=== PATIENT | male | born 1940 | race African-American/Black ===

== ENCOUNTER 2017-09-20 13:17 | Inpatient (IN) | payer MEDICARE ==
[2017-09-20 13:54] LABS: AGAP ISTAT 13 mmol/L (6-14); BUN ISTAT 28 mg/dL (8-26); CHLORIDE ISTAT 104 mmol/L (98-110); CREATININE ISTAT 1.7 mg/dL (0.5-1.4); GLUCOSE ISTAT 164 mg/dL (70-99); HEMATOCRIT ISTAT 39 % (37-52); HEMOGLOBIN ISTAT 13.3 g/dL (14-18); ION CA ISTAT 1.14 mmol/L (1.13-1.32); POTASSIUM ISTAT 5.9 mmol/L (3.5-5.0); SODIUM ISTAT 137 mmol/L (135-145); TOT CO2 ISTAT 27 mmol/L (23-32)
[2017-09-20 14:05] LABS: BILIRUBIN,URINE NEGATIVE (NEG); CLARITY,URINE CLEAR; COLOR,URINE YELLOW; GLUCOSE,URINE NEGATIVE (NEG); NITRITE,URINE NEGATIVE (NEG); PH,URINE 5.5; PROTEIN,URINE 30 mg/dL (NEG-TRACE)
[2017-09-20 14:15] LABS: BACTERIA,URINE 0 /HPF (0-FEW); HYALINE CASTS, URINE MODERATE /HPF; RBC,URINE 0 /HPF (0-2); WBC,URINE OCC /HPF (0-4)
[2017-09-20] MEDS ORDERED: ONDANSETRON PF 4 MG/2 ML VIAL. IV (16:15)
[2017-09-20] MEDS: fentaNYL PF VIAL 100 MCG/2 ML VIAL IV ×2 (16:18→17:53)
[2017-09-20 17:39] LABS: POC GLUCOSE 125 mg/dL (70-99)
[2017-09-20] MEDS ORDERED: INFLUENZA VAX SCREEN BY RX. MC (17:45)
[2017-09-20 19:07] LABS: POTASSIUM 4.7 mmol/L (3.5-5.1)
[2017-09-20] MEDS ORDERED: DEXTROSE 50% 25 GM / 50ML DISP.SYRIN. IV (19:30)
[2017-09-20] MEDS: TAMSULOSIN 0.4 MG CAP.ER.24H. PO (20:10)
[2017-09-20 20:52] LABS: POC GLUCOSE 189 mg/dL (70-99)
[2017-09-20] MEDS: DEXAMETHASONE SOD PHOS 4 MG/ML VIAL IV (22:53)
[2017-09-20] MEDS: HYDROcodone/APAP 5/325MG 1 TAB TABLET PO (22:53)
[2017-09-21 04:50] LABS: ADD MAN DIFF? NO
[2017-09-21 05:00] LABS: BASO % 0 % (0-3); EOS % 0 % (0-3); HEMATOCRIT 38.3 % (39.0-53.0); HEMOGLOBIN 11.6 g/dL (13.0-17.5); LYMPH % 14 % (24-48); MEAN CORPUSCULAR HEMOGLOBIN 23 pg (25-35); MEAN CORPUSCULAR HGB CONC 30 g/dL (31-37); MEAN CORPUSCULAR VOLUME 77 fL (79-100); MONO # 0.1 x10^3/uL (0.0-1.1); MONO % 1 % (0-9); NEUT # 6.2 x10^3uL (1.8-7.7); NEUT % 85 % (31-73); PLATELET COUNT 244 x10^3/uL (140-400); RED BLOOD COUNT 5.01 x10^6/uL (4.30-5.70); RED CELL DISTRIBUTION WIDTH 12.8 % (11.5-14.5); WHITE BLOOD COUNT 7.4 x10^3/uL (4.0-11.0)
[2017-09-21] MEDS: DEXAMETHASONE SOD PHOS 4 MG/ML VIAL IV ×3 (05:18→21:26)
[2017-09-21 05:35] LABS: ANION GAP 6 (6-14); BLOOD UREA NITROGEN 22 mg/dL (8-26); CALCIUM 8.8 mg/dL (8.5-10.1); CARBON DIOXIDE 27 mmol/L (21-32); CHLORIDE 100 mmol/L (98-107); CREATININE 1.4 mg/dL (0.7-1.3); GFR 59.5; GLUCOSE 248 mg/dL (70-99); POTASSIUM 5.6 mmol/L (3.5-5.1); SODIUM 133 mmol/L (136-145)
[2017-09-21] MEDS: LEVOTHYROXINE 150 MCG TABLET PO (07:41)
[2017-09-21] MEDS: CLOPIDOGREL BISULFATE 75 MG TABLET PO (07:42)
[2017-09-21] MEDS: GLIMEPIRIDE 2 MG TABLET. PO (07:43)
[2017-09-21] MEDS: HYDROcodone/APAP 5/325MG 1 TAB TABLET PO ×2 (07:43→12:14)
[2017-09-21] MEDS: LISINOPRIL 10 MG TABLET PO (07:47)
[2017-09-21] MEDS: FLU VACC QS2017-18 (36MOS+)/PF 0.5 ML SYRINGE. VAX IM (07:49)
[2017-09-21] MEDS: GADOBUTROL 7.5 MMOL/7.5 ML VIAL IV (09:33)
[2017-09-21 11:14] LABS: POC GLUCOSE 289 mg/dL (70-99)
[2017-09-21] MEDS ORDERED: DEXTROSE 50% 25 GM / 50ML DISP.SYRIN. IV (14:45)
[2017-09-21 16:42] LABS: POC GLUCOSE 268 mg/dL (70-99)
[2017-09-21] MEDS: metFORMIN 500 MG TABLET PO (17:31)
[2017-09-21] MEDS: INSULIN ASPART 300 UNITS/3 ML INSULN.PEN SQ ×2 (17:38→21:33)
[2017-09-21 21:24] LABS: POC GLUCOSE 264 mg/dL (70-99)
[2017-09-21] MEDS: TAMSULOSIN 0.4 MG CAP.ER.24H. PO (21:26)
[2017-09-22] MEDS: LEVOTHYROXINE 150 MCG TABLET PO (05:23)
[2017-09-22] MEDS: DEXAMETHASONE SOD PHOS 4 MG/ML VIAL IV (05:23)
[2017-09-22 08:10] LABS: POC GLUCOSE 213 mg/dL (70-99)
[2017-09-22] MEDS: metFORMIN 500 MG TABLET PO ×2 (08:40→17:41)
[2017-09-22] MEDS: GLIMEPIRIDE 2 MG TABLET. PO (08:40)
[2017-09-22] MEDS: LISINOPRIL 10 MG TABLET PO (08:43)
[2017-09-22] MEDS: INSULIN ASPART 300 UNITS/3 ML INSULN.PEN SQ ×4 (08:46→21:13)
[2017-09-22] MEDS: CLOPIDOGREL BISULFATE 75 MG TABLET PO (08:47)
[2017-09-22] MEDS: BUPIVACAINE MPF 0.25% 10 ML VIAL. IJ (09:30)
[2017-09-22] MEDS ORDERED: methylPREDNISolone ACETATE 40 MG/ML VIAL. (09:30)
[2017-09-22] MEDS ORDERED: BUPIVACAINE MPF 0.25% 10 ML VIAL. (09:30)
[2017-09-22] MEDS: methylPREDNISolone ACETATE 40 MG/ML VIAL. IM ×2 (09:30)
[2017-09-22 11:30] LABS: POC GLUCOSE 228 mg/dL (70-99)
[2017-09-22 12:12] LABS: POC GLUCOSE 232 mg/dL (70-99)
[2017-09-22 17:22] LABS: POC GLUCOSE 209 mg/dL (70-99)
[2017-09-22] MEDS: TAMSULOSIN 0.4 MG CAP.ER.24H. PO (20:48)
[2017-09-22 21:07] LABS: POC GLUCOSE 253 mg/dL (70-99)
[2017-09-23] MEDS: LEVOTHYROXINE 150 MCG TABLET PO (05:39)
[2017-09-23 08:15] LABS: POC GLUCOSE 160 mg/dL (70-99)
[2017-09-23] MEDS: metFORMIN 500 MG TABLET PO (08:20)
[2017-09-23] MEDS: GLIMEPIRIDE 2 MG TABLET. PO (08:21)
[2017-09-23] MEDS: LISINOPRIL 10 MG TABLET PO (08:22)
[2017-09-23] MEDS: INSULIN ASPART 300 UNITS/3 ML INSULN.PEN SQ ×2 (08:25→12:00)
[2017-09-23] MEDS ORDERED: BUPIVACAINE MPF 0.25% 10 ML VIAL. (09:00)
[2017-09-23] MEDS ORDERED: methylPREDNISolone ACETATE 40 MG/ML VIAL. (09:00)
[2017-09-23] MEDS: BUPIVACAINE MPF 0.25% 10 ML VIAL. IJ (09:00)
[2017-09-23] MEDS: methylPREDNISolone ACETATE 40 MG/ML VIAL. IM (09:00)
[2017-09-23] MEDS ORDERED: ACETAMINOPHEN 500 MG TABLET PO (09:30)
[2017-09-23] MEDS ORDERED: ONDANSETRON PF 4 MG/2 ML VIAL. IV (09:30)
[2017-09-23] MEDS ORDERED: DEXTROSE 50% 25 GM / 50ML DISP.SYRIN. IV (09:30)
[2017-09-23] MEDS ORDERED: ONDANSETRON ODT 4 MG TAB.RAPDIS. PO (09:30)
[2017-09-23] MEDS ORDERED: oxyCODONE/APAP 5/325 1 TAB TABLET PO (09:30)
[2017-09-23 10:36] LABS: ANION GAP 8 (6-14); BLOOD UREA NITROGEN 32 mg/dL (8-26); CALCIUM 9.2 mg/dL (8.5-10.1); CARBON DIOXIDE 27 mmol/L (21-32); CHLORIDE 100 mmol/L (98-107); CREATININE 1.4 mg/dL (0.7-1.3); GFR 59.5; GLUCOSE 161 mg/dL (70-99); POTASSIUM 4.4 mmol/L (3.5-5.1); SODIUM 135 mmol/L (136-145)
[2017-09-23 11:57] LABS: POC GLUCOSE 118 mg/dL (70-99)
[2017-09-23] MEDS: CLOPIDOGREL BISULFATE 75 MG TABLET PO (14:05)
== END 2017-09-23 16:00 | disposition home health service (06) | DRG 552 ==
LOC: ER 13:17 → 4 NORTH 16:00
DX: M48.00 Spinal stenosis, site unspecified (principal); E11.42 Type 2 diabetes mellitus with diabetic polyneuropathy; E87.5 Hyperkalemia; E87.1 Hypo-osmolality and hyponatremia; G83.9 Paralytic syndrome, unspecified; E78.5 Hyperlipidemia, unspecified; E89.0 Postprocedural hypothyroidism; G89.29 Other chronic pain; I10 Essential (primary) hypertension; K21.9 Gastro-esophageal reflux disease without esophagitis; M54.10 Radiculopathy, site unspecified; N40.1 Benign prostatic hyperplasia with lower urinary tract symptoms; Z83.3 Family history of diabetes mellitus; Z85.028 Personal history of other malignant neoplasm of stomach; Z85.850 Personal history of malignant neoplasm of thyroid; Z86.73 Personal history of transient ischemic attack (TIA), and cerebral infarction without residual deficits; Z90.49 Acquired absence of other specified parts of digestive tract; H26.9 Unspecified cataract; Z88.6 Allergy status to analgesic agent; Z88.5 Allergy status to narcotic agent
CPT/HCPCS: 36415; 72131; 72158; 72192; 73565; 80047; 80048; 81001; 82962; 84132; 85025; 90686; 97116-GP; 97161-GP; 99285; 99285-25; A9585; J1030; J1100; J1815; J3010; J3490